=== PATIENT | female | born 1965 | race Caucasian/White ===

== ENCOUNTER → 2019-03-12 | Outpatient (CLI) | payer BC ==
[~2019-03-12] MED LIST: ALPR0.5T8 PO; FENO48TA4 PO; LEVOTHYROXINE PO; MILK175T PO; SIMV20TA6 PO; UBID100C10 PO; VITA1CAP85 PO; [UNRECOGNIZED DRUG - OTHER] PO
== END | disposition home or self-care (01) ==
LOC: RAH 10:49
PROVIDERS: ATTEND Family Medicine
DX: D17.22 Benign lipomatous neoplasm of skin and subcutaneous tissue of left arm (principal); R22.32 Localized swelling, mass and lump, left upper limb
CPT/HCPCS: 76882